=== PATIENT | female | born 1945 | race Caucasian/White ===

== ENCOUNTER 2021-06-25 09:04 | Outpatient (CLI) | payer MEDICARE, OTHER ==
[2021-06-25 12:20] LABS: Hemoglobin 13.9 g/dL (12.0-15.5); Mean Corpuscular HGB CONC 33.5 g/dL (32.0-36.0); Mean Corpuscular Hemoglobin 29.6 pg (27.0-33.0); Mean Corpuscular Volume 88.3 fl (81.6-98.3); Mean Platelet Volume 11.6 fl (7.4-10.4); Platelet Count 237 10x3/uL (150-450); RBC Distribution Width 13.5 % (11.5-14.5); White Blood Cell (WBC) Count 6.8 10x3/uL (3.5-10.5)
[2021-06-25 12:43] LABS: Anion Gap 15 mmol/L (10-20); BUN (Urea Nitrogen) 19 mg/dL (9.8-20.1); Calc. Creatinine Clearance 0 mL/min (70-130); Calcium 10.1 mg/dL (7.8-10.44); Carbon Dioxide 27 mmol/L (23-31); Chloride 101 mmol/L (98-107); Glucose 70 mg/dL (83-110); Potassium 4.8 mmol/L (3.5-5.1); Sodium 138 mmol/L (136-145)
[2021-06-25 12:47] LABS: Prothrombin Time 11.2 sec (9.5-12.1)
[2021-06-26 01:54] LABS: SARS-CoV-2 PCR by NAA Not Detected (NotDetected)
== END 2021-06-25 09:05 | disposition home or self-care (01) ==
LOC: LABBT 09:04
PROVIDERS: ATTEND Internal Medicine Cardiovascular Disease
DX: Z01.812 Encounter for preprocedural laboratory examination (principal); Z20.822 Contact with and (suspected) exposure to COVID-19
CPT/HCPCS: 80048; 85027; 85610; U0003; U0005